=== PATIENT | male | born 1955 | race Caucasian/White ===

== ENCOUNTER → 2022-01-31 13:03 | Outpatient (BNVA) | payer MEDICARE, MEDICAID, SELFPAY | PROVIDERS: Visit Provider Nurse Practitioner Family | DX: J44.9 Chronic obstructive pulmonary disease, unspecified (principal); R00.2 Palpitations; I25.10 Atherosclerotic heart disease of native coronary artery without angina pectoris; F17.200 Nicotine dependence, unspecified, uncomplicated; Z12.5 Encounter for screening for malignant neoplasm of prostate; Z12.11 Encounter for screening for malignant neoplasm of colon; I25.2 Old myocardial infarction; R06.09 Other forms of dyspnea; Z76.89 Persons encountering health services in other specified circumstances; Z12.2 Encounter for screening for malignant neoplasm of respiratory organs | CPT/HCPCS: 80053; 80061; G0103 ==

== ENCOUNTER 2022-02-07 16:33 | Emergency (ER) | payer MEDICARE, MEDICAID, SELFPAY ==
[2022-02-07 16:45] VITALS: BP 146/90; PULSE 74; RESP 16; TEMP 36.7; O2SAT 96; BMI 17.4
--- NOTE | 2022-02-07 17:05 | XRR_ITS ---
PROCEDURE INFORMATION: Exam: XR Left Hand Exam date and time: 02/07/2022 6:04 PM Age: 66 years old Clinical indication: Pain; Hand; Left; Additional info: Left hand table saw injury TECHNIQUE: Imaging protocol: Radiologic exam of the Left hand. Views: 3 or more views. COMPARISON: No relevant prior studies available. FINDINGS: Bones/joints: Some irregularity/fragmentation of the distal most tuft of the 1st digit at the site of the wound. Otherwise, osseous structures are intact. Soft tissues: Normal. XR/XR hand LT min 3V* [id number] IMPRESSION: Some irregularity/fragmentation of the distal most tuft of the 1st digit at the site of the wound. Otherwise osseous structures are intact.
--- NOTE | 2022-02-07 17:15 | W.ED.EXTPRO ---
HPI - Extremity Problem General: Chief complaint: Extremity Injury, Upper Stated complaint: Left hand injury from table saw Time Seen by Provider: 02/07/22 17:05 History of Present Illness: Patient is a 66-year-old male comes to the ED with injury to left thumb. Injury occurred just prior to arrival. He was building a chicken coop and using his table saw. He accidentally cut the distal pad of his left thumb with a table saw. he also has laceration to distal pad of index finger as well. He currently has 9 out of 10 pain. Patient is not up-to-date on tetanus. Associated symptoms: Deny chest pain, fever(s) or rash Review of Systems Const: Denies: fever(s), chills or fatigue Eyes: Denies: change in vision or eye discomfort ENMT: Denies: throat pain, odynophagia, nasal discharge or nasal congestion Card: Denies: chest pain, palpitations, edema, swelling of feet/ankles, dyspnea on exertion or orthopnea Resp: Denies: dyspnea, productive cough or non-productive cough GI: Denies: abdominal pain, nausea, vomiting, diarrhea, constipation or hematochezia : Denies: flank pain, difficulty urinating, dysuria or hematuria Musc: Reports: extremity pain (Left thumb); Denies: neck pain, back pain or extremity swelling Skin/Breast: Reports: new lesions (left thumb skin avulsion, linear laceration on distal pad of index); Denies: rash Neuro: Denies: headache(s), numbness in extremities or weakness in extremities [facility] ED PFSH: Medical History CAD (coronary artery disease) COPD (chronic obstructive pulmonary disease) No pertinent family history Family History Other Aneurysm Cancer Stroke Social History Smoking and tobacco status: current every day smoker Physical Exam Const: COMMON NORMALS: patient oriented x3 and alert GENERAL APPEARANCE: cooperative HENMT: COMMON NORMALS: normocephalic HEAD & SCALP: normocephalic MOUTH: Normal oral and palatal mucosa present THROAT: posterior oropharynx normal and uvula midline Neck/C-Spine: COMMON NORMALS: supple GENERAL: Yes normal visual inspection Resp: COMMON NORMALS: normal respiratory effort, No retractions, No use of accessory muscles and clear to auscultation bilaterally AUSCULTATION: clear to auscultation bilaterally Cardio: COMMON NORMALS: regular rate, regular rhythm, S1 normal heart sound present, S2 normal heart sound present, No gallops present (Cardio), No clicks present (Cardio), No murmurs present (Cardio) and Peripheral pulses 2+ throughout RATE: regular rate RHYTHM: regular rhythm HEART SOUNDS: S1 normal heart sound present and S2 normal heart sound present PERIPHERAL PULSES: Peripheral pulses 2+ throughout GI: COMMON NORMALS: Normal to inspection, nondistended, normoactive bowel sounds present, Soft to palpation, non-tender and no masses PALPATION: Yes Soft to palpation : COMMON NORMALS: Yes no CVA tenderness BLADDER/KIDNEY EXAM: Yes no CVA tenderness Back/Pelvis: COMMON NORMALS: no CVA tenderness Extremity: NARRATIVE EXTREMITY EXAM: Left thumb?distal pad skin avulsion present. Saw also cut distal end of nail. Full range of motion. Left index finger?distal pad has a superficial 1.5 cm linear laceration. Neuro: COMMON NORMALS: patient oriented x3 SENSORIUM/ORIENTATION: Yes alert GAIT: Yes Normal gait present Skin: GENERAL SKIN EXAM: dry skin Procedures Laceration Laceration 1: Site: hand (index finger) Side (If applicable): left Size (cm): 1.5 Description: linear and clean Depth: simple, single layer Local Anesthetic: lidocaine 1% Amount of anesthesia used (mL): 5 Pre-repair: irrigated extensively (With normal saline and beta iodine, skin cleaned with CHG swab) Skin layer closed with: nylon Size (cm): 4-0 Number of sutures: 3 Technique: simple, interrupted Course Vital Signs: Vital signs: Vital Signs Temperature 98.0 F 02/07/22 16:45 Pulse Rate 74 02/07/22 16:45 Respiratory Rate 16 02/07/22 16:45 Blood Pressure 146/90 02/07/22 16:45 Pulse Oximetry 96 02/07/22 16:45 Oxygen Delivery Me thod 02/07/22 16:45 MDM - Extremity (Nontraumatic) Medical Decision Making Patient is a 66-year-old male comes to the ED with tablesaw injury to left thumb and index finger. Vitals are stable. Exam shows skin avulsion of distal pad of left thumb with distal and of nailbed and nail damage noted. He also has a superficial 1.5 cm linear laceration to distal pad of left index finger. He was given updated dose of tetanus here in the ED. X-ray of left hand showed possible fragmentation of the distal tuft of thumb. Patient's thumb and index finger laceration were irrigated extensively with normal saline and beta iodine wash. Lidocaine 1% with was used as local on the index finger and 3 sutures were placed to close up laceration on index finger. Patient's thumb was dressed with Vaseline gauze. He was given a dose of Rocephin here in the ED. Patient is stable for discharge home and diagnosed with avulsion of skin of finger, finger laceration and fracture of distal phalanx of left thumb. I placed an order with case management for patient be referred to Ortho for follow-up. Patient discharged home with a prescription for cephalexin and hydrocodone for pain. He was instructed on how to care for wounds at home. Return to ED precautions given. Patient understood and agreed with plan. Lab Data Radiology Impressions Hand X-Ray 02/07/22 17:05 IMPRESSION: Some irregularity/fragmentation of the distal most tuft of the 1st digit at the site of the wound. Otherwise osseous structures are intact. Discharge Plan Discharge Patient Disposition: Home Clinical Impression: Fracture of distal phalanx of left thumb Qualifiers: Encounter type: initial encounter Fracture type: open Fracture alignment: nondisplaced Qualified Code(s): S62.525B - Nondisplaced fracture of distal phalanx of left thumb, initial encounter for open fracture Avulsion of skin of finger Qualifiers: Encounter type: initial encounter Qualified Code(s): S61.209A - Unspecified open wound of unspecified finger without damage to nail, initial encounter Finger laceration Qualifiers: Encounter type: initial encounter Finger: index finger Damage to nail status: without damage Foreign body presence: without foreign body Laterality: left Qualified Code(s): S61.211A - Laceration without foreign body of left index finger without damage to nail, initial encounter Condition: Stable Prescriptions: New cephalexin 500 mg capsule 500 mg PO Q6H 7 Days Qty: 28 0RF No Action albuterol sulfate [Ventolin HFA] 90 mcg/actuation HFA aerosol inhaler 2 puff inhalation QID PRN (Reason: shortness of breath or wheezing) Qty: 8.5 6RF budesonide-formoterol [Symbicort] 160-4.5 mcg/actuation HFA aerosol inhaler 2 puff inhalation Q12H Qty: 10.2 6RF simvastatin 20 mg tablet 20 mg PO DAILY 90 Days Qty: 90 1RF Discharge Orders: Discharge ED (Routine); Ordered 02/07/22 Ordered By: Yordan Olivia Referrals: eRbecca Beavers NP [Primary Care Provider] - Discharge Diet: Regular Discharge Activity: Limit activity as instructed Patient Instructions: Finger Laceration (ED), Skin Avulsion (ED), Opioid Safety Activity Restrictions/Additional Instructions: Case management should be contacting you in the next several days set up an appointment with Ortho for follow-up on finger injury. Take full course of antibiotics as prescribed. Keep laceration site clean and dry. For your thumb clean skin daily with soap and water and rinse out then apply Vaseline or triple antibiotic ointment on wound and keep wrapped up and covered with bandage. Clean daily with soap and water and then apply thin layer of triple antibiotic ointment on it and cover with bandage. Watch for signs of infection such as redness, warmth, increased tenderness and puslike drainage. If you see the signs of infection return to the ED, urgent care or PCP for reevaluation. call your PCP to schedule a follow-up appointment for reevaluation and suture removal in about 7- 10 days. Continue taking all home meds. Follow discharge plans as discussed. You can return to the ED if symptoms worsen. Coding Level of Care Code ED Dynamometer Tester for Gifty Fwbrendon Exam Comprehensive
[2022-02-07] MEDS: tetanus-dipt-pertussis 0.5 mL SDV IM (17:29)
[2022-02-07] MEDS: HYDROcodone-acetaminophen 7.5-325 mg Tablet 1 TAB PO (17:29)
[2022-02-07] MEDS: lidocaine 1% INJ 20 mL MDV (mL) 2.1 ML XX (18:57)
[2022-02-07] MEDS: cefTRIAXone 1,000 mg SDV 1000 MG IM (18:57)
--- NOTE | 2022-02-10 10:43 | DCPLANNER ---
Addendum entered by Marilu Gallegos 03/13/22 08:32: Patient had a follow up appointment scheduled with ortho - patient did attend appointment. Original Note: web production manager had message to schedule a follow up appointment for patient with ortho. web production manager sent patients information to the front office staff at ortho. Patients information will be printed and reviewed. Clinic will call patient with appointment information.
== END 2022-02-07 19:02 | disposition home or self-care (01) ==
PROVIDERS: Emergency Provider Physician Assistant; PCP Nurse Practitioner Family
DX: S61.211A Laceration without foreign body of left index finger without damage to nail, initial encounter (principal); S62.525B Nondisplaced fracture of distal phalanx of left thumb, initial encounter for open fracture; W27.0XXA Contact with workbench tool, initial encounter; Y93.H3 Activity, building and construction
CPT/HCPCS: 12001; 73130; 90471; 90715; 96372; 99284; J0696

== ENCOUNTER → 2022-02-14 09:33 | Outpatient (BNVA) | payer MEDICARE, SELFPAY | PROVIDERS: PCP Nurse Practitioner Family; Visit Provider Nurse Practitioner Family | DX: S61.012A Laceration without foreign body of left thumb without damage to nail, initial encounter (principal); W31.2XXA Contact with powered woodworking and forming machines, initial encounter; Y93.H3 Activity, building and construction; S62.522A Displaced fracture of distal phalanx of left thumb, initial encounter for closed fracture | CPT/HCPCS: 99213 ==

== ENCOUNTER → 2022-02-20 08:39 | Outpatient (BNVA) | payer MEDICARE, SELFPAY | PROVIDERS: PCP Nurse Practitioner Family; Visit Provider Nurse Practitioner Family | DX: S62.522A Displaced fracture of distal phalanx of left thumb, initial encounter for closed fracture (principal); S61.209A Unspecified open wound of unspecified finger without damage to nail, initial encounter; W31.2XXA Contact with powered woodworking and forming machines, initial encounter | CPT/HCPCS: 99213 ==

== ENCOUNTER → 2022-02-27 08:37 | Outpatient (BNVA) | payer MEDICARE, SELFPAY | PROVIDERS: PCP Nurse Practitioner Family; Visit Provider Nurse Practitioner Family | DX: S62.522A Displaced fracture of distal phalanx of left thumb, initial encounter for closed fracture (principal); S61.002A Unspecified open wound of left thumb without damage to nail, initial encounter; W31.2XXA Contact with powered woodworking and forming machines, initial encounter | CPT/HCPCS: 99213 ==

== ENCOUNTER 2022-03-05 06:07 | Outpatient (CLI) | payer MEDICARE, SELFPAY ==
--- NOTE | 2022-03-05 06:30 | CT_ITS ---
WS: [id number] LDCT LUNG CANCER SCREENING TECHNIQUE: Noncontrast CT of the chest with coronal and sagittal reformatted images. CLINICAL INFORMATION: screeni COMPARISON: None. DLP: 80.11 mGy.cm DIvol: Mean CTDIvol: 1.60 (mGy) All CT scans at [facility] use at least one of these dose optimization techniques: automat ed exposure control; mA and/or kV adjustment per patient size (includes targeted exams where dose is matched to clinical indication); or iterative reconstruction. FINDINGS: Clustered subpleural nodularity with fibrosis RIGHT upper lobe measuring 2-3 mm. Partially calcified nodule LEFT upper lobe measuring 4 mm. A few tiny calcified granulomas. No acute pulmonary infiltrates. Normal caliber thoracic aorta. Aorti c calcification. No mediastinal or hilar lymphadenopathy. No axillary lymphadenopathy. Normal GE junction. CT/CT lung screening [id number] IMPRESSION: LUNG-RADS: 2-Benign Appearance or Behavior FOLLOW UP: 12 Month: Continue annual screening with LDCT
== END 2022-03-05 06:08 | disposition home or self-care (01) ==
LOC: RAD 06:09
PROVIDERS: PCP Nurse Practitioner Family; Visit Provider Nurse Practitioner Family
DX: Z12.2 Encounter for screening for malignant neoplasm of respiratory organs (principal); J44.9 Chronic obstructive pulmonary disease, unspecified; F17.200 Nicotine dependence, unspecified, uncomplicated; J84.10 Pulmonary fibrosis, unspecified
CPT/HCPCS: 71271; 94060; 94726; 94729

== ENCOUNTER → 2022-03-19 08:29 | Outpatient (BNVA) | payer MEDICARE, SELFPAY | PROVIDERS: PCP Nurse Practitioner Family; Visit Provider Nurse Practitioner Family | DX: S61.209A Unspecified open wound of unspecified finger without damage to nail, initial encounter (principal) | CPT/HCPCS: 99213 ==

== ENCOUNTER 2022-03-21 14:28 | Outpatient (CLI) | payer MEDICARE, MEDICAID, SELFPAY ==
--- NOTE | 2022-03-21 15:15 | USCV_ITS ---
Garth Robert (J Carlos) Age: 66 Gender: M : 1955 Exam Date: 03/21/2022 14:51 Ordering Phys: Rebecca Beavers NP Technologist: Exam Location: [facility] [place] Indication: hx of mi BP: 120 / 70 HR: 68 Rhythm: Sinus Technical Quality: Adequate MEASUREMENTS (Male / Female) Normal Values 2D ECHO LV Diastolic Diameter PLAX 4.2 cm 4.2 - 5.9 / 3.9 - 5.3 cm LV Systolic Diameter PLAX 2.5 cm IVS Diastolic Thickness 1.0 cm 0.6 - 1.0 / 0.6 - 0.9 cm IVS Systolic Thickness 1.5 cm LVPW Diastolic Thickness 0.9 cm 0.6 - 1.0 / 0.6 - 0.9 cm LVPW Systolic Thickness 1.5 cm LVOT Diameter 2.2 cm LV Ejection Fraction 2D Teich 72.5 % LV Ejection Fraction MOD 2C 55.8 % LV Ejection Fraction 2C AL 56.1 % LA Diameter 3.2 cm Aorta at Sinotubular Diameter 3.4 cm IVC Diameter 1.4 cm M-MODE Aortic Annulus Diameter 3.9 cm LA Ao Ratio MM 0.8 MV E Point Septal Separation 0.8 cm DOPPLER AV Peak Velocity 108.0 cm/s LVOT Peak Velocity 97.0 cm/s AV Area Cont Eq vti 3.8 cm squared AV Area Cont Eq pk 3.4 cm squared MV Area PHT 2.2 cm squared Mitral E to A Ratio 0.8 MV E' Velocity 34.0 cm/s Mitral E to MV E' Ratio 5.0 Mitral E to LV E' Lateral Ratio 4.8 Mitral E to LV E' Septal Ratio 5.1 TR Peak Velocity 102.0 cm/s TR Peak Gradient 4.2 mmHg TR Mean Velocity 0.0 cm/s TR Mean Gradient 0.0 mmHg TR Velocity Time Integral 0.0 cm TV Peak E Velocity 59.0 cm/s Right Atrial Pressure 3.0 mmHg Pulmonary Artery Systolic Pressu 7.2 mmHg RV Acceleration Time 0.1 s FINDINGS Left Ventricle Left ventricle is normal in size. LV systolic function is normal with EF of 55 to 60%. No regional wall motion abnormalities are seen. Grade 1 diastolic dysfunction Right Ventricle Normal in size and function Right Atrium Normal in size Left Atrium Normal in size Mitral Valve Structurally normal mitral valve. Trace mitral regurgitation Aortic Valve Structurally normal aortic valve. No significant stenosis or regurgitation Tricuspid Valve Mild tricuspid regurgitation. Pulmonary artery systolic pressure is normal Pulmonic Valve Not well visaulized Pericardium Normal Aorta Normal in size IVC Appears to be normal CONCLUSIONS LV systolic function is normal with EF 55 to 60%. Grade 1 diastolic dysfunction. Mild tricuspid regurgitation. Trace mitral regurgitation No comparison studies are available Favian Singleton MD (Electronically Signed) Final Date: 07 April 2022 08:47 S
== END 2022-03-21 14:29 | disposition home or self-care (01) ==
PROVIDERS: PCP Nurse Practitioner Family; Visit Provider Nurse Practitioner Family
DX: F17.200 Nicotine dependence, unspecified, uncomplicated (principal); I25.2 Old myocardial infarction; R00.2 Palpitations; I08.1 Rheumatic disorders of both mitral and tricuspid valves
CPT/HCPCS: 93306

== ENCOUNTER → 2022-04-01 12:28 | Outpatient (BNVA) | payer MEDICARE, SELFPAY | PROVIDERS: PCP Nurse Practitioner Family; Visit Provider Internal Medicine | DX: I25.10 Atherosclerotic heart disease of native coronary artery without angina pectoris (principal); J44.9 Chronic obstructive pulmonary disease, unspecified; E78.2 Mixed hyperlipidemia; F17.200 Nicotine dependence, unspecified, uncomplicated; R07.9 Chest pain, unspecified; R06.09 Other forms of dyspnea | CPT/HCPCS: 93005; 99204 ==

== ENCOUNTER → 2022-04-30 13:17 | Outpatient (BNVA) | payer MEDICARE, SELFPAY | PROVIDERS: PCP Nurse Practitioner Family; Visit Provider Internal Medicine Pulmonary Disease | DX: J44.9 Chronic obstructive pulmonary disease, unspecified (principal); T78.40XA Allergy, unspecified, initial encounter; R06.09 Other forms of dyspnea; F17.210 Nicotine dependence, cigarettes, uncomplicated | CPT/HCPCS: 36415; 82785; 86003; 99204 ==

== ENCOUNTER 2022-05-15 09:29 | Outpatient (CLI) | payer MEDICARE, MEDICAID, SELFPAY ==
--- NOTE | 2022-05-15 | ECG_ITS ---
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 Interpretive Statements NAME OF STUDY: LEXISCAN SESTAMIBI STRESS TEST INDICATION: [Chest Pain, ] Procedure: At the baseline, the blood pressure was 128/75 mmHg with a heart rate of 57 bpm. The electrocardiogram showed normal sinus rhythm, normal axis with normal ST and T's. The Lexiscan was infused over a period of 20 seconds. A total of 0.4 mg of Lexiscan was infused. The stress phase was continued for a total of 5 minutes. Heart rate was at the end of stress phase was 85 bpm and a blood pressure of 100/65 mmHg. The EKG at the peak infusion revealed normal sinus rhythm with no significant ST-T wave changes. Sestamibi was injected 20 seconds after the Lexiscan infusion. Blood pressure at the end of recovery phase was 107/69 mmHg with a heart rate of 86 bpm. Conclusion: 1. Normal EKG response to Lexiscan infusion 2. No Lexiscan induced chest pain or cardiac arrhythmia. 3. Normal blood pressure and heart rate response. 4. Sestamibi/sestamibi perfusion scan pending; see separate report. Electronically Signed On 05-18-2022 20:03:07 FURNITURE DUSTER by Favian Singleton M.D. [email or web address]
[2022-05-15 10:47] VITALS: BMI 17.2
--- NOTE | 2022-05-15 10:49 | NMCV_ITS ---
NM anuradha perf SPECT r/s* [id number] Robert Liang (J Carlos) Age: 66 Gender: M : 1955 Exam Date: 05/15/2022 11:37 Ordering Phys: Favian Singleton M.D ([email or web address]) Technologist: ELISSA Mcguire Exam Location: [facility] Indications: CHEST PAIN STRESS TEST Please see separate stress test report in [facility] for full findings IMAGE PROTOCOL Rest/Stress 1 Lexiscan Day Radiopharmaceutical Dose (mCi) Administration Site Administered by Rest: Tc-99m 11.0 IV ELISSA Strauss Sestamibi Stress:Tc-99m 32.4 IV ELISSA Mcguire Sestamiluz Rest: 15-May-2022 60 Discovery 630 Stress: 15-May-2022 30 Discovery 630 0.4mg Lexiscan. Images obtained in supine and prone position. SPECT RESULTS Technical Quality: Excellent Raw Data Analysis: Normal Image Corrections: No attenuation or motion correction applied Summed Stress Score: 0 Summed Rest Score: 4 Summed Difference Score: 0 PERFUSION FINDINGS SPECT images demonstrate homogeneous tracer distribution throughout the myocardium. FUNCTIONAL RESULTS (calculated via Gated SPECT) Stress Image LV EF (%): 66 Stress EDV (mL):97 TID: 1 Stress ESV (mL):33 FUNCTIONAL FINDINGS: There is normal left ventricular systolic function. IMPRESSIONS 1. Normal myocardial perfusion imaging with no evidence of ischemia 2. LV systolic function is normal Favian Singleton MD (Electronically Signed) Final Date: 16 May 2022 13:30 S
[2022-05-15] MEDS: regadenoson 0.4 Mg/5 ml Syringe IVP (12:29)
[2022-05-15 12:30] VITALS: BP 107/69; PULSE 86
== END 2022-05-15 09:30 | disposition home or self-care (01) ==
PROVIDERS: PCP Nurse Practitioner Family; Visit Provider Internal Medicine
DX: R07.9 Chest pain, unspecified (principal)
CPT/HCPCS: 36415; 78452; 93017; 96374; A9500; J2785

== ENCOUNTER → 2022-07-01 12:34 | Outpatient (BNVA) | payer MEDICARE, MEDICAID, SELFPAY | PROVIDERS: PCP Nurse Practitioner Family; Visit Provider Nurse Practitioner Family | DX: I25.10 Atherosclerotic heart disease of native coronary artery without angina pectoris (principal); F17.210 Nicotine dependence, cigarettes, uncomplicated | CPT/HCPCS: 99213 ==

== ENCOUNTER → 2022-09-02 08:55 | Outpatient (BNVA) | payer MEDICARE, MEDICAID, SELFPAY | PROVIDERS: PCP Nurse Practitioner Family; Visit Provider Nurse Practitioner Family | DX: E78.2 Mixed hyperlipidemia (principal); Z00.00 Encounter for general adult medical examination without abnormal findings; J44.9 Chronic obstructive pulmonary disease, unspecified; I25.10 Atherosclerotic heart disease of native coronary artery without angina pectoris; R00.2 Palpitations | CPT/HCPCS: 80053; 80061 ==

== ENCOUNTER 2022-09-03 06:08 | Day surgery (SDC) | payer MEDICARE, MEDICAID, SELFPAY ==
[2022-09-01 09:21] VITALS: BMI 17.4
[2022-09-03 06:24] VITALS: BP 145/78; PULSE 54; RESP 17; TEMP 36.4; O2SAT 96
[2022-09-03] MEDS: sodium chloride 0.9% 1,000 ML 30 ML IV ×2 (06:28→09:01)
--- NOTE | 2022-09-03 07:41 | ANES.PREANE2 ---
Pre-Anesthetic Assessment Height/Weight: Height 1.78 m Weight 55.338 kg Temp Pulse Resp BP Pulse Ox O2 Del Method 97.5 F L 54 L 17 145/78 96 Room Air 09/03/22 06:24 09/03/22 06:24 09/03/22 06:24 09/03/22 06:24 09/03/22 06:24 09/03/22 06:24 Preop Diagnosis: screening Operation Date: 09/03/22 08:00 Proposed Procedures p [id number] Colon Z12.11(Not Applicable) - Dirk Walden DO Familial anesthetic complications: none Was Beta Danielle taken within 24 hours: N/A Was Clonidine taken within 24 hours: N/A Last intake: Intake Last Liquid Date 09/02/22 Last Liquid Time 22:00 Last Solid Date 09/01/22 Last Solid Time 19:00 Social Tobacco and No alcohol 1 pack(s) per day 50 pack years Exam alert, oriented x 3, clear to auscultation bilaterally and regular rate & rhythm Airway Submandibular: within normal limits Cervical ROM: within normal limits Mallampati: Class I Dentition: chipped Comments: Comments: most teeth gone Pulmonary Asthma, Chronic Obstructive Pulmonary Disease and Exertional Dyspnea CV/HEM Myocardial Infarction (2017 follow up has all been good) None reported Hepatic None reported GI None reported Metabolic Hyperlipidemia Musc/skel Lower Back Pain multiple back surgeries Neuropsych None reported Anesthetic Plan ASA status: 2 Anesthesia: MAC Risk of > 500 ml blood loss (7ml/kg in children): No Medications/Allergies Home Medications Medication Instructions Recorded Confirmed Last Taken Type albuterol sulfate 90 mcg/actuation 2 puff inhalation QID PRN 09/02/22 09/03/22 09/02/22 Rx aerosol inhaler (Ventolin HFA) shortness of breath or wheezing #8.5 grams budesonide 160 mcg-glycopyr 9 2 inh inhalation BID 30 days #10.7 09/02/22 09/03/22 09/02/22 Rx mcg-formot 4.8 mcg/actuation HFA grams inhaler (Breztri Aerosphere) simvastatin 20 mg tablet 20 mg PO DAILY 90 days #90 tabs 09/02/22 09/03/22 09/02/22 Rx Allergies Allergy/AdvReac Type Severity Reaction Status Date / Time iodine Allergy Unknown Verified 09/03/22 06:18 Current Medications Generic Name Dose Route Start Last Admin Trade Name Freq PRN Reason Stop Dose Admin Sodium Chloride 1,000 mls @ 30 mls/hr 09/03/22 06:15 09/03/22 06:28 Sodium Chloride 0.9% IV 09/04/22 06:14 30 mls/hr .Q24H JOCELYNN Administration PFSH Anesthesia Medical History CAD (coronary artery disease) COPD (chronic obstructive pulmonary disease) No pertinent family history Family History Other Aneurysm Cancer Stroke Social History Smoking and tobacco status: current every day smoker cigarettes Packs smoked per day: 1 Years cigarettes smoked: 50 [ Other cigarette details: started age 11 ; less than 1ppd currently ] Data Anesthesia Cardiac Studies: Echocardiogram 03/21/22 Sestamibi Stress Test (Cardiology) 05/15/22
--- NOTE | 2022-09-03 08:26 | PM.HP ---
Providers/Chief Complaint Primary Care Provider: Rebecca Beavers NP Chief Complaint: Z12.11 History of Present Illness Robert Liang is a 66 year old male here for his first screening colonoscopy. He does have a history of polyps. Pathology cholecystectomy, constipation, Medications/Allergies Home Medications Medication Instructions Recorded Confirmed Last Taken Type albuterol sulfate 90 mcg/actuation 2 puff inhalation QID PRN 09/02/22 09/03/22 09/02/22 Rx aerosol inhaler (Ventolin HFA) shortness of breath or wheezing #8.5 grams budesonide 160 mcg-glycopyr 9 2 inh inhalation BID 30 days #10.7 09/02/22 09/03/22 09/02/22 Rx mcg-formot 4.8 mcg/actuation HFA grams inhaler (Breztri Aerosphere) simvastatin 20 mg tablet 20 mg PO DAILY 90 days #90 tabs 09/02/22 09/03/22 09/02/22 Rx Allergies Allergy/AdvReac Type Severity Reaction Status Date / Time iodine Allergy Unknown Verified 09/03/22 06:18 PFSH Acute PFSH: Medical History CAD (coronary artery disease) COPD (chronic obstructive pulmonary disease) No pertinent family history Family History Other Aneurysm Cancer Stroke Social History Smoking and tobacco status: current every day smoker cigarettes Packs smoked per day: 1 Years cigarettes smoked: 50 [ Other cigarette details: started age 11 ; less than 1ppd currently ] Vitals/I&O/Wt Last Vital Signs Temp 97.5 F L 09/03/22 06:24 Pulse 54 L 09/03/22 06:24 Resp 17 09/03/22 06:24 BP 145/78 09/03/22 06:24 Pulse Ox 96 09/03/22 06:24 O2 Del Method Room Air 09/03/22 06:24 Weight last 48 hrs Weight 122 lb A&P Assessment and plan (1) Colon cancer screening: Plan Colonoscopy The risks and benefits of the procedure, including bleeding, infection, intestinal perforation requiring surgery, missed lesion were explained to the patient. The patient is understanding of the risks and wishes to proceed. Attestations Medical Necessity Statement*: Home Coding Level of Care Code Acute Code for Chg Fwd Diagnoses Colon cancer screening Z12.11
[2022-09-03 09:14] VITALS: BP 111/65; PULSE 61; RESP 16; TEMP 36.1; O2SAT 96
[2022-09-03 09:29] VITALS: BP 109/70; PULSE 60; RESP 18; O2SAT 99
--- NOTE | 2022-09-03 14:23 | ANE.PACU2 ---
Inpatient post-anesthesia follow up: Airway intact: Yes Vital signs: Temperature 97 F Pulse Rate 60 Respiratory Rate 18 Blood Pressure 109/70 Pulse Oximetry 99 Oxygen Delivery Me thod Room Air Oxygen Flow Rate Fraction of Inspir ed Oxygen Hydration adequate: Yes Nausea and vomiting: No Pain level: 1 Mental status: Baseline
== END 2022-09-03 10:01 | disposition home or self-care (01) ==
PROVIDERS: PCP Nurse Practitioner Family; Visit Provider Surgery
PROC: 0DJD8ZZ Inspection of Lower Intestinal Tract, Via Natural or Artificial Opening Endoscopic (ICD-10-PCS; CPT 45378; principal; 2022-09-03 08:00)
DX: Z12.11 Encounter for screening for malignant neoplasm of colon (principal); I25.10 Atherosclerotic heart disease of native coronary artery without angina pectoris; J44.9 Chronic obstructive pulmonary disease, unspecified; F17.210 Nicotine dependence, cigarettes, uncomplicated; I25.2 Old myocardial infarction; K57.30 Diverticulosis of large intestine without perforation or abscess without bleeding; D12.2 Benign neoplasm of ascending colon; I10 Essential (primary) hypertension
CPT/HCPCS: 45381; 45385; 45388; 74176; 80053; 83605; 83690; 85025; 85610; 88305; 96374; 96375; 99284; J2405; J2704; J3010; J7030

== ENCOUNTER 2022-09-03 20:09 | Emergency (ER) | payer MEDICARE, MEDICAID, SELFPAY ==
[2022-09-03 20:10] VITALS: BMI 24.3
[2022-09-03 20:17] VITALS: BP 121/72; PULSE 73; RESP 17; TEMP 36.9; O2SAT 94
--- NOTE | 2022-09-03 20:26 | CTR_ITS ---
PROCEDURE INFORMATION: Exam: CT Abdomen And Pelvis Without Contrast Exam date and time: 09/03/2022 8:43 PM Age: 66 years old Clinical indication: Abdominal pain; Generalized; Prior surgery; Surgery date: 6+ months; Surgery type: Lumbar fusion; Additional info: Severe abd pain, S/P colonoscopy today, perforation? TECHNIQUE: Imaging protocol: Computed tomography of the abdomen and pelvis without contrast. Radiation optimization: All CT scans at this facility use at least one of these dose optimization techniques: automated exposure control; mA and/or kV adjustment per patient size (includes targeted exams where dose is matched to clinical indication); or iterative reconstruction. REPORTING DATA: Count of CT and Cardiac NM exams in prior 12 months: This patient has received 2 known CTs and 0 known cardiac nuclear medicine studies in the 12 months prior to the current study. COMPARISON: CT lung screening [id number] 03/05/2022 6:22 AM RADIATION DOSE METRICS: Total DLP (mGy-cm): 304.36 FINDINGS: Lungs: Emphysematous changes. Bibasilar atelectasis. Liver: Normal. No mass. Gallbladder and bile ducts: Normal. No calcified stones. No ductal dilation. Pancreas: Normal. No ductal dilation. Spleen: Normal. No splenomegaly. Adrenal glands: Normal. No mass. Kidneys and ureters: Right kidney punctate nonobstructing calyceal stone. Stomach and bowel: Prominent fluid in the small bowel without dilation may reflect an enteritis. Mild sigmoid colon wall thickening in the area of multiple diverticula likely due to nondistention, please correlate for colitis. Appendix: No evidence of appendicitis. Intraperitoneal space: Unremarkable. No free air. No significant fluid collection. Vasculature: Unremarkable. No abdominal aortic aneurysm. Lymph nodes: Unremarkable. No enlarged lymph nodes. Urinary bladder: Unremarkable as visualized. Reproductive: Unremarkable as visualized. Bones/joints: Lumbar spine surgical hardware. Soft tissues: Unremarkable. CT/CT abdomen pelvis wo con [id number] IMPRESSION: 1. Negative for free intra-abdominal air to indicate a bowel perforation as in provided clinical indication. 2. Emphysematous changes. 3. Bibasilar atelectasis. 4. Right kidney punctate nonobstructing calyceal stone. 5. Prominent fluid in the small bowel without dilation may reflect an enteritis. 6. Mild sigmoid colon wall thickening in the area of multiple diverticula likely due to nondistention, please correlate for colitis.
[2022-09-03 20:34] VITALS: RESP 14; O2SAT 93
[2022-09-03] MEDS: ondansetron 2 mg/ML SDV 2 mL 4 MG IVP (20:34)
[2022-09-03] MEDS: fentaNYL 50 mcg/mL INJ 2mL IVP (20:34)
--- NOTE | 2022-09-03 20:35 | W.ED.ABDPA2 ---
HPI - Abdominal Pain General: Chief Complaint: Abdominal Pain Stated Complaint: abdomen pain Time Seen by Provider: 09/03/22 20:22 History of Present Illness: Patient presents to the ER with complaints of worsening abdominal pain today. Today patient had a colonoscopy by Dr. Walden and he removed several large polyps. Patient's been having worsening abdominal pain ever since. Patient called Dr. Walden he told to come here to be checked out for potential perforation. MD elicited complaint: abdominal pain Pertinent past history: other (Colonoscopy with polypectomy this morning) Onset (ago): day(s) (Since colonoscopy this morning) Pain Consistency: constant Location: Diffuse Severity: moderate Quality: aching Radiation: none Migration to: no migration Exacerbating factors: movement Relieving factors: nothing Context: recent surgery/procedure Associated Symptoms: Reports no associated symptoms; Denies chills, diarrhea, dysuria, fever(s), nausea and vomiting Review of Systems General: Reports: 10 or more systems reviewed and unremarkable except in HPI and below Const: Denies: fever(s) or chills Eyes: Denies: change in vision or photophobia ENMT: Denies: throat pain or odynophagia Card: Denies: chest pain, palpitations or irregular heart rhythm Resp: Denies: dyspnea, productive cough or non-productive cough GI: Reports: abdominal pain; Denies: nausea, vomiting or diarrhea : Denies: flank pain, difficulty urinating or dysuria Musc: Denies: neck pain, back pain or extremity pain [facility] PFSH: Medical History CAD (coronary artery disease) COPD (chronic obstructive pulmonary disease) No pertinent family history Family History Other Aneurysm Cancer Stroke Social History Smoking and tobacco status: current every day smoker cigarettes Packs smoked per day: 1 Years cigarettes smoked: 50 [ Other cigarette details: started age 11 ; less than 1ppd currently ] Physical Exam Const: COMMON NORMALS: average body habitus, patient oriented x3, no limitations, healthy appearing, alert and well nourished HENMT: COMMON NORMALS: normocephalic, atraumatic, hearing grossly normal bilaterally, external ears normal, Normal external nose present and moist oral mucous membranes HEAD & SCALP: normocephalic and atraumatic NOSE: Normal external nose present EXTERNAL EAR: Yes external ears normal Eye: COMMON NORMALS: Equal, round and reactive pupils present, EOMs intact bilaterally, conjunctivae normal and no scleral icterus CONJUNCTIVA: Yes conjunctivae normal PUPIL: Yes Equal, round and reactive pupils present Neck/C-Spine: COMMON NORMALS: full ROM, no lymphadenopathy, supple, no meningeal signs, no JVD and Thyroid normal THYROID: Thyroid normal Lymph: LYMPHATIC: no lymphadenopathy noted Chest: COMMONS NORMALS: normal inspection of the chest and normal palpation of entire chest wall Resp: COMMON NORMALS: normal respiratory effort, No retractions, No use of accessory muscles and clear to auscultation bilaterally AUSCULTATION: clear to auscultation bilaterally Cardio: COMMON NORMALS: no JVD, regular rate, regular rhythm, S1 normal heart sound present and S2 normal heart sound present RATE: regular rate RHYTHM: regular rhythm HEART SOUNDS: S1 normal heart sound present and S2 normal heart sound present GI: COMMON NORMALS: Soft to palpation INSPECTION: Yes normal to inspection AUSCULTATION: Yes normoactive bowel sounds PALPATION: Yes Soft to palpation and Yes Tenderness to palpation present (GI) Details: LLQ, RLQ, LUQ and RUQ : COMMON NORMALS: Yes no CVA tenderness BLADDER/KIDNEY EXAM: Yes no CVA tenderness Back/Pelvis: COMMON NORMALS: no CVA tenderness Neuro: COMMON NORMALS: patient oriented x3 SENSORIUM/ORIENTATION: Yes alert MENINGEAL SIGNS: Yes no meningeal signs Course Vital Signs: Vital signs: Vital Signs Temperature 98.5 F 09/03/22 20:17 Pulse Rate 65 09/03/22 21:46 Respiratory Rate 17 09/03/22 21:46 Blood Pressure 91/60 09/03/22 21:46 Pulse Oximetry 90 09/03/22 21:46 Oxygen Delivery Me thod Room Air 09/03/22 20:17 MDM - Abdominal Pain Medical Decision Making Patient presents to the ER with complaints of worsening abdominal pain post colonoscopy and was worried about a perforation secondary to polypectomy. Physical exam was performed on patient did reveal patient in moderate amount of pain with abdominal palpation. Lab work was obtained which showed a white count of 17 and a total bilirubin of 2.7 with normal liver enzymes. CT scan was obtained which was negative for free air but did show prominent fluid in the small bowel and mild sigmoid colon wall thickening which is thought to to be due to the colonoscopy and/or colonoscopy prep. These findings were discussed with the patient and patient has elected to go home for symptomatic care. Patient will be discharged home with 2 [place] to take home to take as needed for pain. Patient was instructed if pain comes back or worsens he should come back for further evaluation. Differential Diagnosis Likely abdominal pain; Unlikely acute appendicitis, calculus of kidney, constipation, diverticulitis, endometriosis, gastroenteritis, pancreatitis or small bowel obstruction Medical Records I reviewed the patient's medical records. Lab Data I reviewed the patient's lab results. 09/03/22 20:09/03/22 20: Labs/Radiology: Radiology Impressions Abdomen/Pelvis CT 09/03/22 20: IMPRESSION: 1. Negative for free intra-abdominal air to indicate a bowel perforation as in provided clinical indication. 2. Emphysematous changes. 3. Bibasilar atelectasis. 4. Right kidney punctate nonobstructing calyceal stone. 5. Prominent fluid in the small bowel without dilation may reflect an enteritis. 6. Mild sigmoid colon wall thickening in the area of multiple diverticula likely due to nondistention, please correlate for colitis. Laboratory Results WBC 17.8 10^3/uL (4.0-10.0) H 09/03/22: RBC 4.74 10^6/uL (4.1-5.3) 09/03/22 20: Hgb 14.6 g/dL (11.7-16.6) 09/03/22: Hct 44.1 % (42.0-52.0) 09/03/22 20: MCV 93.0 fl (80-94) 09/03/22 20: MCH 30.8 pg (28.0-34.0) 09/03/22: MCHC 33.1 g/dL (30.0-36.0) 09/03/22: RDW 12.9 % (12.1-15.1) 09/03/22 20: Plt Count 251 10^3/cmm (130-400) 09/03/22 20: MPV 9.5 fL (7.4-10.4) 09/03/22 20: Neut % (Auto) 87.6 % 09/03/22 20: Lymph % (Auto) 8.0 % 09/03/22 20: [place] % (Auto) 3.7 % 09/03/22 20: Eos % (Auto) 0.1 % 09/03/22 20: Baso % (Auto) 0.1 % 09/03/22 20: Neut # (Auto) 15.61 10^3/uL (1.8-7.7) H 09/03/22 20: Lymph # (Auto) 1.4 10^3/uL (0.8-4.8) 09/03/22: [place] # (Auto) 0.7 10^3/uL (0.2-0.9) 09/03/22 20: Eos # (Auto) 0.0 10^3/uL (0.0-0.8) 09/03/22: Baso # (Auto) 0.0 10^3/uL (0.0-0.1) 09/03/22 20: Nucleated RBC % (auto) 0 % 09/03/22: Nucleated RBCs # 0.0 /100WBC 09/03/22 20: PT 13.40 SECONDS (12.1-14.9) 09/03/22 20: INR 0.99 (0.8-1.2) 09/03/22 20: Sodium 138 mmol/L (136-145) 09/03/22: Potassium 3.7 mmol/L (3.5-5.1) 09/03/22: Chloride 104 mmol/L (98-107) 09/03/22: Carbon Dioxide 23 mmol/L (22-29) 09/03/22 20: Anion Gap 14.7 (5-19) 09/03/22 20: BUN 12 mg/dL (8-23) 09/03/22 20: Creatinine 0.5 mg/dL (0.7-1.2) L 09/03/22 20: GFR Calculation 165.9 mL/min (90-130) H 09/03/22 20: Glucose 103 mg/dL (65-115) 09/03/22 20:27 Calculated Osmolality 286 mOsm/kg (285-295) 09/03/22 20: Lactic Acid 1.1 mmol/L (0.5-2.2) 09/03/22 20: Calcium 8.4 mg/dL (8.5-10.5) L 09/03/22 20: Total Bilirubin 2.7 mg/dL (0.15-1.2) H 09/03/22 20: AST 17 U/L (0-40) 09/03/22 20: ALT 7 U/L (0-41) 09/03/22 20: Alkaline Phosphatase 62 U/L (40-130) 09/03/22 20: Total Protein 6.6 g/dL (6.6-8.7) 09/03/22 20: Albumin 4.1 g/dL (3.5-5.2) 09/03/22 20: Globulin 2.5 g/dL (1.3-4.6) 09/03/22 20: Lipase 15 U/L (13-60) 09/03/22 20:27 Discharge Plan Discharge Patient Disposition: Home Clinical Impression: Abdominal pain Qualifiers: Abdominal location: generalized Qualified Code(s): R10.84 - Generalized abdominal pain Condition: Stable Prescriptions: No Action albuterol sulfate [Ventolin HFA] 90 mcg/actuation HFA aerosol inhaler 2 puff inhalation QID PRN (Reason: shortness of breath or wheezing) Qty: 8.5 6RF Breztri Aerosphere 160-9-4.8 mcg/actuation HFA aerosol inhaler 2 inh inhalation BID 30 Days Qty: 10.7 11RF simvastatin 20 mg tablet 20 mg PO DAILY 90 Days Qty: 90 1RF Discharge Orders: Discharge ED (Routine); Ordered 09/03/22 Ordered By: Tl Hazel Referrals: Rebecca Beavers NP [Primary Care Provider] - 1 week Patient Instructions: Abdominal Pain (ED) Activity Restrictions/Additional Instructions: You were given 2 [place] tablets to go home with to take as needed for pain medicine. If you decide to take these please take 1 pill every 6 hours as needed for pain. The more you get up and move around this should help the air move out of your colon and help with your pain. Please follow-up with your surgeon and/or family practice doctor in the next week to have your labs redrawn to check your white count and your total bilirubin. If your pain comes back and/or worsens please follow-up with the emergency room for reevaluation. Coding Level of Care Code ED Assistant [employer] for [employer]
[2022-09-03 20:43] LABS: Basophils % 0.1 %; Eosinophils % 0.1 %; Hematocrit 44.1 % (42.0-52.0); Hemoglobin 14.6 g/dL (11.7-16.6); Lymphocytes # 1.4 10^3/uL (0.8-4.8); Mean Corpuscular HGB Conc 33.1 g/dL (30.0-36.0); Mean Corpuscular Hemoglobin 30.8 pg (28.0-34.0); Mean Platelet Volume 9.5 fL (7.4-10.4); Monocytes # 0.7 10^3/uL (0.2-0.9); Monocytes % 3.7 %; Neutrophils # 15.61 10^3/uL (1.8-7.7); Neutrophils % 87.6 %; Nucleated Red Blood Cells % 0 %; Platelet Count 251 10^3/cmm (130-400); Red Blood Count 4.74 10^6/uL (4.1-5.3); Red Cell Distribution Width 12.9 % (12.1-15.1); White Blood Count 17.8 10^3/uL (4.0-10.0)
[2022-09-03 21:11] LABS: INR 0.99 (0.8-1.2)
[2022-09-03 21:24] LABS: Lactic Sepsis W/Reflex 1.1 mmol/L (0.5-2.2)
[2022-09-03 21:25] LABS: Alanine Aminotransferase 7 U/L (0-41); Albumin Level 4.1 g/dL (3.5-5.2); Alkaline Phosphatase 62 U/L (40-130); Anion Gap 14.7 (5-19); Aspartate Amino Transferase 17 U/L (0-40); Blood Urea Nitrogen 12 mg/dL (8-23); Calcium 8.4 mg/dL (8.5-10.5); Carbon Dioxide 23 mmol/L (22-29); Chloride 104 mmol/L (98-107); Globulin 2.5 g/dL (1.3-4.6); Glomerular Filtration Rate 165.9 mL/min (90-130); Glucose 103 mg/dL (65-115); Osmolality Calculated 286 mOsm/kg (285-295); Potassium 3.7 mmol/L (3.5-5.1); Sodium 138 mmol/L (136-145); Total Bilirubin 2.7 mg/dL (0.15-1.2); Total Protein 6.6 g/dL (6.6-8.7)
[2022-09-03 21:43] LABS: Lipase 15 U/L (13-60)
[2022-09-03 21:46] VITALS: BP 91/60; PULSE 65; RESP 17; O2SAT 90
[2022-09-03 23:18] VITALS: BP 111/67; PULSE 62; RESP 14; O2SAT 93
[2022-09-03] MEDS: HYDROcodone-acetaminophen 5-325 mg Tablet 2 TAB PO (23:18)
== END 2022-09-03 23:25 | disposition home or self-care (01) ==
PROVIDERS: Emergency Medicine; Emergency Provider Emergency Medicine; PCP Nurse Practitioner Family
DX: R10.9 Unspecified abdominal pain (principal); D72.829 Elevated white blood cell count, unspecified; R17 Unspecified jaundice; R93.3 Abnormal findings on diagnostic imaging of other parts of digestive tract; Z12.11 Encounter for screening for malignant neoplasm of colon
CPT/HCPCS: 74176; 80053; 83605; 83690; 85025; 85610; 96374; 96375; 99284; J2405; J3010

== ENCOUNTER → 2022-09-08 10:36 | Outpatient (BNVA) | payer MEDICARE, MEDICAID, SELFPAY | PROVIDERS: PCP Nurse Practitioner Family; Visit Provider Nurse Practitioner Family | DX: R10.9 Unspecified abdominal pain (principal); D72.829 Elevated white blood cell count, unspecified | CPT/HCPCS: 80053; 82150; 83690 ==

== ENCOUNTER → 2022-09-23 17:27 | Outpatient (BNVA) | payer MEDICARE, MEDICAID, SELFPAY | PROVIDERS: PCP Nurse Practitioner Family; Visit Provider Surgery | DX: Z09 Encounter for follow-up examination after completed treatment for conditions other than malignant neoplasm (principal) | CPT/HCPCS: 99212 ==

== ENCOUNTER → 2022-10-08 13:47 | Outpatient (BNVA) | payer MEDICARE, MEDICAID, SELFPAY | PROVIDERS: PCP Nurse Practitioner Family; Visit Provider Internal Medicine | DX: I25.10 Atherosclerotic heart disease of native coronary artery without angina pectoris (principal); J44.9 Chronic obstructive pulmonary disease, unspecified; E78.2 Mixed hyperlipidemia; R06.09 Other forms of dyspnea; F17.210 Nicotine dependence, cigarettes, uncomplicated | CPT/HCPCS: 99214 ==

== ENCOUNTER → 2022-10-27 10:47 | Outpatient (BNVA) | payer MEDICARE, MEDICAID, SELFPAY | PROVIDERS: PCP Nurse Practitioner Family; Visit Provider Nurse Practitioner Family | DX: R10.11 Right upper quadrant pain (principal); K63.5 Polyp of colon; R53.1 Weakness; R53.83 Other fatigue; Z12.5 Encounter for screening for malignant neoplasm of prostate; J32.0 Chronic maxillary sinusitis; G25.81 Restless legs syndrome; W57.XXXA Bitten or stung by nonvenomous insect and other nonvenomous arthropods, initial encounter; E78.2 Mixed hyperlipidemia; Z79.899 Other long term (current) drug therapy | CPT/HCPCS: 80053; 80061; 82306; 82607; 82746; 83550; 84443; 85651; 86003; 86008; 86140; 86618; 86666; 86757; G0103 ==

== ENCOUNTER → 2022-10-30 09:32 | Outpatient (BNVA) | payer MEDICARE, SELFPAY | PROVIDERS: PCP Nurse Practitioner Family; Visit Provider Internal Medicine Pulmonary Disease | DX: J44.9 Chronic obstructive pulmonary disease, unspecified (principal); J82.83 Eosinophilic asthma; F17.210 Nicotine dependence, cigarettes, uncomplicated; Z79.51 Long term (current) use of inhaled steroids | CPT/HCPCS: 99214 ==

== ENCOUNTER → 2023-01-26 13:03 | Outpatient (BNVA) | payer MEDICARE, SELFPAY | PROVIDERS: PCP Nurse Practitioner Family; Visit Provider Nurse Practitioner Family | DX: E78.2 Mixed hyperlipidemia (principal) | CPT/HCPCS: 80053; 80061 ==

== ENCOUNTER → 2023-03-03 13:25 | Outpatient (BNVA) | payer MEDICARE, SELFPAY | PROVIDERS: PCP Nurse Practitioner Family; Referring Provider Nurse Practitioner Family; Visit Provider Dermatology | DX: D48.5 Neoplasm of uncertain behavior of skin (principal); D18.01 Hemangioma of skin and subcutaneous tissue; L82.1 Other seborrheic keratosis | CPT/HCPCS: 11102; 99203 ==

== ENCOUNTER 2023-03-06 06:41 | Outpatient (CLI) | payer MEDICARE, SELFPAY ==
--- NOTE | 2023-03-06 07:00 | CT_ITS ---
WS: [id number] LDCT LUNG CANCER SCREENING TECHNIQUE: Noncontrast CT of the chest with coronal and sagittal reformatted images. CLINICAL INFORMATION: Cancer Screen COMPARISON: None. DLP: 48.51 mGy.cm DIvol: Mean CTDIvol: 0.80 (mGy) All CT scans at [facility] use at least one of these dose optimization techniques: automat ed exposure control; mA and/or kV adjustment per patient size (includes targeted exams where dose is matched to clinical indication); or iterative reconstruction. FINDINGS: Mild chronic emphysematous changes. Fibrosis in the lung apices. Adrenal glands are normal. Stable subpleural nodularity RIGHT upper lobe. Partially calcified nodule LEFT upper lobe measuring 4 mm is unchanged. A few tiny calcified granulomas. Normal caliber thoracic aorta. Aortic calcification. Coronary calcification. No mediastinal or hilar lymphadenopathy. No axillary lymphadenopathy. Adrenals are normal. IMPRESSION: CT/CT lung screening [id number] LUNG-RADS: 2-Benign Appearance or Behavior FOLLOW UP: 12 Month: Continue annual screening with LDCT
== END 2023-03-06 06:42 | disposition home or self-care (01) ==
LOC: RAD 06:41
PROVIDERS: PCP Nurse Practitioner Family; Visit Provider Internal Medicine Pulmonary Disease
DX: Z12.2 Encounter for screening for malignant neoplasm of respiratory organs (principal); F17.210 Nicotine dependence, cigarettes, uncomplicated
CPT/HCPCS: 71271

== ENCOUNTER → 2023-04-03 07:47 | Outpatient (BNVA) | payer MEDICARE, SELFPAY | PROVIDERS: PCP Nurse Practitioner Family; Visit Provider Dermatology | DX: C44.311 Basal cell carcinoma of skin of nose (principal) | CPT/HCPCS: 14060; 17311 ==

== ENCOUNTER 2023-04-29 07:10 | Day surgery (SDC) | payer MEDICARE, SELFPAY ==
[2023-04-29 07:34] VITALS: BP 134/80; PULSE 71; RESP 18; TEMP 36.6; O2SAT 97
[2023-04-29] MEDS: sodium chloride 0.9% 1,000 ML 30 ML IV (07:38)
--- NOTE | 2023-04-29 07:42 | ANES.PREANE2 ---
Pre-Anesthetic Assessment Height/Weight: Height 1.78 m Weight 54.431 kg Temp Pulse Resp BP Pulse Ox O2 Del Method 97.9 F 71 18 134/80 97 Room Air 04/29/23 07:34 04/29/23 07:34 04/29/23 07:34 04/29/23 07:34 04/29/23 07:34 04/29/23 07:34 Preop Diagnosis: Screening Operation Date: 04/29/23 08:30 Proposed Procedures p [id number] colon G0121 screen colon A risk Z12.11(Not Applicable) - Dirk Walden DO Familial anesthetic complications: None Was Beta Danielle taken within 24 hours: N/A Was Clonidine taken within 24 hours: N/A Last intake: Intake Last Liquid Date 04/28/23 Last Liquid Time 22:00 Last Solid Date 04/27/23 Last Solid Time 20:00 Social No alcohol and No tobacco (Quit 2 months ago) Exam alert, oriented x 3 and regular rate & rhythm Diminished bilateral breath sounds Airway Submandibular: within normal limits Cervical ROM: within normal limits Mallampati: Class II Comments: Comments: numerous missing teeth, one fronth tooth History/ROS No significant history except as noted and No significant complaints Pulmonary Chronic Obstructive Pulmonary Disease, Cough and Exertional Dyspnea CV/HEM Arrythmia, Coronary Artery Disease and Myocardial Infarction (2017 no intervention) None reported Hepatic None reported GI None reported History of polyps Metabolic Hyperlipidemia Musc/skel Osteoarthritis/DJD (Back surgery x2 with instrumentation) Neuropsych Neuropathy Anesthetic Plan ASA status: 3 Anesthesia: Anesthesia Evaluation, General and MAC Risk of > 500 ml blood loss (7ml/kg in children): No Medications/Allergies Home Medications Medication Instructions Recorded Confirmed Last Taken Type budesonide 160 mcg-glycopyr 9 2 inh inhalation BID 30 days #10.7 09/02/22 04/29/23 04/27/23 Rx mcg-formot 4.8 mcg/actuation HFA grams inhaler (Breztri Aerosphere) albuterol sulfate 90 mcg/actuation 2 puff inhalation QID PRN 01/26/23 04/27/23 04/28/23 Rx aerosol inhaler (Ventolin HFA) shortness of breath or wheezing #8.5 grams ropinirole 1 mg tablet 1 mg PO .QHS 90 days #90 tabs 01/26/23 04/27/23 04/28/23 Rx simvastatin 20 mg tablet 20 mg PO DAILY 90 days #90 tabs 01/26/23 04/27/23 04/28/23 Rx tizanidine 4 mg tablet 4 mg PO Q8H PRN muscle spasticity 01/26/23 04/27/23 04/24/23 Rx #90 tabs RSVPreF3 antigen-AS01E 0.5 ml IM ONCE #1 ea 04/24/23 04/27/23 04/22/23 Rx adjuvant(PF) 120 mcg/0.5 mL IM suspension, kit (Arexvy (PF)) Allergies Allergy/AdvReac Type Severity Reaction Status Date / Time Alpha-Gal Allergy ADR-Abdominal Verified 04/27/23 10:38 (Xjruljewy-Ysjbk-9,3-Gala Pain iodine Allergy Unknown Verified 10/30/22 09:39 Current Medications Generic Name Dose Route Start Last Admin Trade Name Freq PRN Reason Stop Dose Admin Sodium Chloride 1,000 mls @ 30 mls/hr 04/29/23 07:15 04/29/23 07:38 Sodium Chloride 0.9% IV 04/30/23 07:14 30 mls/hr .Q24H JOCELYNN Administration PFSH Anesthesia Medical History CAD (coronary artery disease) COPD (chronic obstructive pulmonary disease) No pertinent family history Family History Other Aneurysm Cancer Stroke Social History Smoking and tobacco/nicotine status: current every day tobacco/nicotine user cigarettes Packs smoked per day: 1 Years cigarettes smoked: 50 [ Other cigarette details: started age 11 ; less than 1ppd currently ] Data Anesthesia Cardiac Studies: Echocardiogram 03/21/22 Sestamibi Stress Test (Cardiology) 05/15/22
--- NOTE | 2023-04-29 09:06 | PM.HP ---
Providers/Chief Complaint Primary Care Provider: Rebecca Beavers NP Chief Complaint: Z12.11 History of Present Illness Robert Liang is a 67 year old male Review of Systems General: Reports: 10 or more systems reviewed and unremarkable except in HPI and below Medications/Allergies Home Medications Medication Instructions Recorded Confirmed Last Taken Type budesonide 160 mcg-glycopyr 9 2 inh inhalation BID 30 days #10.7 09/02/22 04/29/23 04/27/23 Rx mcg-formot 4.8 mcg/actuation HFA grams inhaler (Breztri Aerosphere) albuterol sulfate 90 mcg/actuation 2 puff inhalation QID PRN 01/26/23 04/27/23 04/28/23 Rx aerosol inhaler (Ventolin HFA) shortness of breath or wheezing #8.5 grams ropinirole 1 mg tablet 1 mg PO .QHS 90 days #90 tabs 01/26/23 04/27/23 04/28/23 Rx simvastatin 20 mg tablet 20 mg PO DAILY 90 days #90 tabs 01/26/23 04/27/23 04/28/23 Rx tizanidine 4 mg tablet 4 mg PO Q8H PRN muscle spasticity 01/26/23 04/27/23 04/24/23 Rx #90 tabs RSVPreF3 antigen-AS01E 0.5 ml IM ONCE #1 ea 04/24/23 04/27/23 04/22/23 Rx adjuvant(PF) 120 mcg/0.5 mL IM suspension, kit (Arexvy (PF)) Allergies Allergy/AdvReac Type Severity Reaction Status Date / Time Alpha-Gal Allergy ADR-Abdominal Verified 04/27/23 10:38 (Remhcqvgz-Kumit-6,3-Gala Pain iodine Allergy Unknown Verified 10/30/22 09:39 PFSH Acute PFSH: Medical History CAD (coronary artery disease) COPD (chronic obstructive pulmonary disease) No pertinent family history Family History Other Aneurysm Cancer Stroke Social History Smoking and tobacco/nicotine status: current every day tobacco/nicotine user cigarettes Packs smoked per day: 1 Years cigarettes smoked: 50 [ Other cigarette details: started age 11 ; less than 1ppd currently ] Vitals/I&O/Wt Last Vital Signs Temp 97.9 F 04/29/23 07:34 Pulse 71 04/29/23 07:34 Resp 18 04/29/23 07:34 BP 134/80 04/29/23 07:34 Pulse Ox 97 04/29/23 07:34 O2 Del Method Room Air 04/29/23 07:34 Weight last 48 hrs Weight 120 lb A&P Assessment and plan (1) Positive colorectal cancer screening using Cologuard test: (2) History of colon polyps: Plan Colonoscopy The risks and benefits of the procedure, including bleeding, infection, intestinal perforation requiring surgery, missed lesion were explained to the patient. The patient is understanding of the risks and wishes to proceed. Attestations Medical Necessity Statement*: Home Coding Level of Care Code Acute Code for Chg Fwd Diagnoses Positive colorectal cancer screening using Cologuard test R19.5 History of colon polyps Z86.010
[2023-04-29 09:31] VITALS: BP 103/66; PULSE 68; RESP 12; TEMP 36.1; O2SAT 96
[2023-04-29 09:45] VITALS: BP 102/70; PULSE 61; RESP 14; O2SAT 92
[2023-04-29 09:58] VITALS: BP 106/74; PULSE 59; RESP 16; O2SAT 97
== END 2023-04-29 10:30 | disposition home or self-care (01) ==
PROVIDERS: PCP Nurse Practitioner Family; Visit Provider Surgery
PROC: 0DJD8ZZ Inspection of Lower Intestinal Tract, Via Natural or Artificial Opening Endoscopic (ICD-10-PCS; CPT 45378; principal; 2023-04-29 08:30)
DX: Z12.11 Encounter for screening for malignant neoplasm of colon (principal); D12.5 Benign neoplasm of sigmoid colon; I25.10 Atherosclerotic heart disease of native coronary artery without angina pectoris; J44.9 Chronic obstructive pulmonary disease, unspecified; F17.210 Nicotine dependence, cigarettes, uncomplicated; Z86.010 Personal history of colon polyps; I25.2 Old myocardial infarction
CPT/HCPCS: 45385; 88305; J7030

== ENCOUNTER → 2023-06-16 12:15 | Outpatient (BNVA) | payer MEDICARE, SELFPAY | PROVIDERS: PCP Nurse Practitioner Family; Visit Provider Internal Medicine Pulmonary Disease | DX: J43.2 Centrilobular emphysema (principal); J82.83 Eosinophilic asthma; R06.09 Other forms of dyspnea; F17.210 Nicotine dependence, cigarettes, uncomplicated | CPT/HCPCS: 99214 ==

== ENCOUNTER → 2023-06-19 10:12 | Outpatient (BNVA) | payer MEDICARE, SELFPAY | PROVIDERS: PCP Nurse Practitioner Family; Visit Provider Nurse Practitioner Family | DX: J43.2 Centrilobular emphysema (principal); E78.2 Mixed hyperlipidemia; R00.2 Palpitations | CPT/HCPCS: 80053; 80061; 84443; 85025 ==

== ENCOUNTER → 2023-10-08 12:48 | Outpatient (BNVA) | payer MEDICARE, MEDICAID, SELFPAY | PROVIDERS: PCP Nurse Practitioner Family; Visit Provider Internal Medicine Cardiovascular Disease | DX: R06.02 Shortness of breath (principal); R06.09 Other forms of dyspnea | CPT/HCPCS: 99212 ==

== ENCOUNTER → 2023-12-03 17:14 | Outpatient (BNVA) | payer MEDICARE, MEDICAID, SELFPAY | PROVIDERS: PCP Nurse Practitioner Family; Visit Provider Nurse Practitioner Family | DX: N52.9 Male erectile dysfunction, unspecified (principal); R53.83 Other fatigue; R53.1 Weakness; R41.3 Other amnesia; E78.2 Mixed hyperlipidemia; M62.838 Other muscle spasm | CPT/HCPCS: 80053; 80061; 82306; 82607; 82746; 83735; 84402; 84403; 84443 ==

== ENCOUNTER → 2023-12-04 11:54 | Outpatient (BNVA) | payer MEDICARE, MEDICAID, SELFPAY | PROVIDERS: PCP Nurse Practitioner Family; Visit Provider Nurse Practitioner Family | DX: Z12.5 Encounter for screening for malignant neoplasm of prostate (principal); R53.1 Weakness; R41.3 Other amnesia | CPT/HCPCS: 85025; G0103 ==

== ENCOUNTER → 2024-03-03 08:09 | Outpatient (BNVA) | payer MEDICARE, SELFPAY | PROVIDERS: PCP Nurse Practitioner Family; Visit Provider Nurse Practitioner Family | DX: D48.5 Neoplasm of uncertain behavior of skin (principal); D18.01 Hemangioma of skin and subcutaneous tissue; L82.1 Other seborrheic keratosis; L57.8 Other skin changes due to chronic exposure to nonionizing radiation; Z85.828 Personal history of other malignant neoplasm of skin | CPT/HCPCS: 11102; 99213 ==

== ENCOUNTER → 2024-03-07 08:59 | Outpatient (BNVA) | payer MEDICARE, SELFPAY | PROVIDERS: PCP Nurse Practitioner Family; Visit Provider Nurse Practitioner Family | DX: E78.2 Mixed hyperlipidemia (principal); J43.2 Centrilobular emphysema; I25.10 Atherosclerotic heart disease of native coronary artery without angina pectoris; I25.2 Old myocardial infarction; G25.81 Restless legs syndrome; F41.8 Other specified anxiety disorders; N40.1 Benign prostatic hyperplasia with lower urinary tract symptoms; R35.1 Nocturia; E55.9 Vitamin D deficiency, unspecified; E16.2 Hypoglycemia, unspecified; H65.192 Other acute nonsuppurative otitis media, left ear | CPT/HCPCS: 80053; 80061; 85025 ==

== ENCOUNTER → 2024-06-15 15:56 | Outpatient (BNVA) | payer MEDICARE, SELFPAY | PROVIDERS: Family Provider Nurse Practitioner Family; PCP Nurse Practitioner Family; Visit Provider Nurse Practitioner Family | DX: E78.2 Mixed hyperlipidemia (principal); J43.2 Centrilobular emphysema; M62.830 Muscle spasm of back; F41.8 Other specified anxiety disorders; G25.81 Restless legs syndrome; J44.9 Chronic obstructive pulmonary disease, unspecified; N40.1 Benign prostatic hyperplasia with lower urinary tract symptoms; R35.1 Nocturia; I25.10 Atherosclerotic heart disease of native coronary artery without angina pectoris; I25.2 Old myocardial infarction; E55.9 Vitamin D deficiency, unspecified | CPT/HCPCS: 80053; 80061; 84443; 85025 ==

== ENCOUNTER → 2024-07-04 11:06 | Outpatient (BNVA) | payer MEDICARE, SELFPAY | PROVIDERS: Family Provider Nurse Practitioner Family; PCP Nurse Practitioner Family; Visit Provider Nurse Practitioner Family | DX: L72.0 Epidermal cyst (principal); L82.1 Other seborrheic keratosis; Z08 Encounter for follow-up examination after completed treatment for malignant neoplasm; Z85.828 Personal history of other malignant neoplasm of skin; L91.8 Other hypertrophic disorders of the skin; L29.89 Other pruritus; D48.5 Neoplasm of uncertain behavior of skin; L57.0 Actinic keratosis | CPT/HCPCS: 11102; 17000; 17110; 99213 ==

== ENCOUNTER → 2024-09-13 13:09 | Outpatient (BNVA) | payer MEDICARE, SELFPAY | PROVIDERS: Family Provider Nurse Practitioner Family; PCP Nurse Practitioner Family; Visit Provider Nurse Practitioner Family | DX: E78.2 Mixed hyperlipidemia (principal) | CPT/HCPCS: 80053; 80061; 84443; 85025 ==

== ENCOUNTER 2024-09-21 13:41 | Outpatient (CLI) | payer MEDICARE, SELFPAY ==
--- NOTE | 2024-09-21 14:45 | CT_ITS ---
WS: [id number] CT ABDOMEN PELVIS TECHNIQUE: Noncontrast CT of the abdomen and pelvis with coronal and sagittal reformatted images. CLINICAL INFORMATION: R10.9 - Unspecified abdominal pain COMPARISON: CT 2022 DLP: 237.[address] scans at [facility] use at least one of these dose optimization techniques: automated exposure control; mA and/or kV adjustment per patient size (includes targeted exams where dose is matched to clinical indication); or iterative reconstruction. FINDINGS: Sigmoid diverticulosis. Mild thickening with slight induration involving the mid and distal sigmoid colon deep in the pelvis. Tortuous sigmoid colon. Findings suspicious for acute diverticulitis. Recommend correlation for infectious symptoms. Contrast not administered. Mild hepatomegaly. Normal noncontrast spleen. Tiny esophageal hiatal hernia. Slight subsegmental atelectasis in the lung bases. Calcified granuloma LEFT lower lobe. Adrenal glands appear normal. No hydronephrosis in either kidney. Tiny nonobstructing RIGHT calyceal tip calculus. Small LEFT renal cyst. Small splenule. Aortic calcification. Urine distended bladder. Mild prostate enlargement with calcification measuring 4.1 cm. Recommend correlation PSA. Pedicle screw fixation L4-5 with interbody fusion. Hardware degrades some images in the pelvis. CT/CT abdomen pelvis wo con [id number] IMPRESSION: 1. Tortuous sigmoid colon with suspected acute diverticulitis with mild sigmoi d thickening and surrounding induration. Recommend correlation with infectious symptoms and follow-up CT abdomen pelvis with IV contrast after treatment. 2. Recommend follow-up to resolution. 3. Urine distended bladder may be due to bladder outlet obstruction. Mild pros varela enlargement measuring 4.1 cm. Recommend correlation PSA. 4. No other acute findings.
== END 2024-09-21 13:42 | disposition home or self-care (01) ==
PROVIDERS: Family Provider Nurse Practitioner Family; PCP Nurse Practitioner Family; Visit Provider Nurse Practitioner Family
DX: R10.9 Unspecified abdominal pain (principal); R10.819 Abdominal tenderness, unspecified site; R19.5 Other fecal abnormalities; R93.89 Abnormal findings on diagnostic imaging of other specified body structures; N40.0 Benign prostatic hyperplasia without lower urinary tract symptoms; K57.30 Diverticulosis of large intestine without perforation or abscess without bleeding; R16.0 Hepatomegaly, not elsewhere classified; J84.10 Pulmonary fibrosis, unspecified; N28.1 Cyst of kidney, acquired; I70.0 Atherosclerosis of aorta; Z98.1 Arthrodesis status
CPT/HCPCS: 74176; 80053; 85025

== ENCOUNTER → 2024-09-26 11:45 | Outpatient (BNVA) | payer MEDICARE, SELFPAY | PROVIDERS: Family Provider Nurse Practitioner Family; PCP Nurse Practitioner Family; Visit Provider Nurse Practitioner Family | DX: R35.1 Nocturia (principal); N40.0 Benign prostatic hyperplasia without lower urinary tract symptoms; K57.92 Diverticulitis of intestine, part unspecified, without perforation or abscess without bleeding; K44.9 Diaphragmatic hernia without obstruction or gangrene; N28.1 Cyst of kidney, acquired | CPT/HCPCS: 84153 ==

== ENCOUNTER → 2024-10-06 14:04 | Outpatient (BNVA) | payer MEDICARE, SELFPAY | PROVIDERS: Family Provider Nurse Practitioner Family; PCP Nurse Practitioner Family; Visit Provider Nurse Practitioner Family | DX: D23.22 Other benign neoplasm of skin of left ear and external auricular canal (principal); L98.8 Other specified disorders of the skin and subcutaneous tissue; L82.1 Other seborrheic keratosis; Z08 Encounter for follow-up examination after completed treatment for malignant neoplasm; Z85.828 Personal history of other malignant neoplasm of skin | CPT/HCPCS: 99213 ==

== ENCOUNTER 2024-10-13 10:41 | Outpatient (CLI) | payer MEDICARE, SELFPAY ==
--- NOTE | 2024-10-13 11:00 | CT_ITS ---
WS: [id number] CT ABDOMEN AND PELVIS NONCONTRAST HISTORY: N40.0 - Benign prostatic hyperplasia without lower urinar... TECHNIQUE: Imaging performed through the abdomen and pelvis. Coronal and sagittal reformats are submitted. All CT scans at [facility] use at least one of these dose optimization techniques: automated exposure control; mA and/or kV adjustment per patient size (includes targeted exams where dose is matched to clinical indication); or iterative reconstruction. DLP: 234.38 mGy.cm COMPARISON: 09/21/2024 Lower thorax: Lung bases are hyperexpanded. Benign granuloma LEFT lower lobe. Liver: Mild hepatomegaly. No intrahepatic duct dilatation. Gallbladder: Normal gallbladder. No pericholecystic fluid or cholelithiasis. No gallbladder wall thickening. Pancreas: Normal size and attenuation. Normal pancreatic duct. No pancreatitis or mass. Spleen: Normal. Adrenal glands: Normal. No mass. Right kidney: Normal size kidney. Nonobstructing 2 mm calcification lower pole. No perinephric stranding. Left kidney: Normal size kidney with no mass or hydronephrosis. Aorta: Mild atherosclerosis abdominal aorta with no aneurysm. No free fluid, intraperitoneal air or significant lymphadenopathy. GI tract: No obstruction. Mild sigmoid diverticular disease. No residual wall thickening in the sigmoid colon or inflammation. No abscess. Abdominal wall: Negative. No hernia. Pelvis: No free fluid or adenopathy. Negative urinary bladder. Prostate gland is enlarged with mild heterogeneity. Osseous structures: Posterior lumbar fusion at L4-5. Interbody disc spacer at L4-5. Schmorl's node defects L2. Sclerotic bone lesion LEFT greater trochanter. CT/CT abdomen pelvis wo con [id number] IMPRESSION: 1. Resolved sigmoid diverticulitis since 09/21/2024. No residual wall thickening . No abscess. 2. No renal obstruction or hydronephrosis. 3. No ascites or adenopathy. 4. Prostate hypertrophy. 5. Long-term stability sclerotic lesion LEFT greater trochanter.
== END 2024-10-13 10:42 | disposition home or self-care (01) ==
PROVIDERS: Family Provider Nurse Practitioner Family; PCP Nurse Practitioner Family; Visit Provider Nurse Practitioner Family
DX: N40.0 Benign prostatic hyperplasia without lower urinary tract symptoms (principal); K44.9 Diaphragmatic hernia without obstruction or gangrene; K57.30 Diverticulosis of large intestine without perforation or abscess without bleeding; N28.1 Cyst of kidney, acquired; M85.852 Other specified disorders of bone density and structure, left thigh; R91.8 Other nonspecific abnormal finding of lung field; J84.10 Pulmonary fibrosis, unspecified; R16.0 Hepatomegaly, not elsewhere classified; N28.89 Other specified disorders of kidney and ureter; I70.0 Atherosclerosis of aorta; Z98.1 Arthrodesis status; M51.46 Schmorl's nodes, lumbar region
CPT/HCPCS: 74176

== ENCOUNTER → 2024-11-22 13:21 | Outpatient (BNVA) | payer MEDICARE, SELFPAY | PROVIDERS: Family Provider Nurse Practitioner Family; PCP Nurse Practitioner Family; Visit Provider Internal Medicine | DX: I25.10 Atherosclerotic heart disease of native coronary artery without angina pectoris (principal); J44.9 Chronic obstructive pulmonary disease, unspecified; E78.2 Mixed hyperlipidemia; Z87.891 Personal history of nicotine dependence | CPT/HCPCS: 99213 ==

== ENCOUNTER 2024-12-19 17:38 | Emergency (ER) | payer MEDICARE, SELFPAY ==
--- NOTE | 2024-12-19 17:43 | XRR_ITS ---
PROCEDURE INFORMATION: Exam: XR Left Hand Exam date and time: 12/19/2024 5:52 PM Age: 69 years old Clinical indication: Injury or trauma; Other: Laceration; Left; Index finger TECHNIQUE: Imaging protocol: Radiologic exam of the left hand. Views: 3 or more views. COMPARISON: No relevant prior studies available. FINDINGS: Bones/joints: Comminuted fracture of 2nd distal phalanx. Associated laceration. Soft tissues: Normal. XR/XR hand LT min 3V* [id number] IMPRESSION: Comminuted fracture of 2nd distal phalanx.
--- NOTE | 2024-12-19 17:44 | ED_ITS ---
HPI - Extremity Injury (Upper) General: Chief Complaint: Wound/Laceration Stated Complaint: left hand finger injury Time Seen by Provider: 12/19/24 17:39 History of Present Illness: 69-year-old male presents to the emergen cy room with jagged laceration of the tip of the left index finger from using a table saw. No other injuries. Patient's tetanus is up-to-date. He is not on any anticoagulants. Related Data Previous Rx's ?Medication ?Instructions ?Recorded albuterol sulfate 90 mcg/actuation 2 puff inhalation Q ID PRN 09/13/24 aerosol inhaler (Ventolin HFA) shortness of breath or wheezing #8.5 grams alfuzosin 10 mg tablet,extended 10 mg PO DAILY #90 tab s 09/13/24 release 24 hr budesonide 160 mcg-glycopyr 9 See Rx Instructions .Rou te 09/13/24 mcg-formot 4.8 mcg/actuation HFA .COMPLEX #11 grams inhaler (Breztri Aerosphere) cholecalciferol (vitamin D3) 1,250 50,000 unit PO .onc e a week #4 tabs 09/13/24 mcg (50,000 unit) tablet ezetimibe 10 mg tablet 10 mg PO DAILY #90 tabs 05/11/11 ropinirole 1 mg tablet See Rx Instructions .Route 0 09/13/24 .COMPLEX #90 tabs sertraline 50 mg tablet (Zoloft) 50 mg PO DAILY #90 ta bs 09/13/24 tizanidine 4 mg tablet See Rx Instructions .Route 0 09/13/24 .COMPLEX #90 tabs hydrocodone 5 mg-acetaminophen 325 1 tab PO Q6H PRN pa in #15 tabs 12/19/24 mg tablet levofloxacin 500 mg tablet 500 mg PO DAILY 7 days #7 t abs 12/19/24 mupirocin 2 % topical ointment 1 applic topical DAILY #15 grams 12/19/24 (Centany) Allergies Allergy/AdvReac Type Severity Reaction Status Date / Time Alpha-Gal Allergy ADR-Abdominal Verified 11/22/24 14:00 (Tvbaeczdl-Vksvi-7,3-Gala Pain iodine Allergy Unknown Verified 11/22/24 14:00 gelatin capsules Allergy Severe ADR-Abdominal Uncoded 11/22/24 14:00 Pain PFSH ED PFSH: Medical History Shortness of breath History of colon polyps No pertinent family history CAD (coronary artery disease) COPD (chronic obstructive pulmonary disease) Surgical History History of back surgery Family History Other Aneurysm Cancer Stroke Social History Smoking and tobacco/nicotine status: former use of tobacco/nicotine Physical Exam Const: GENERAL APPEARANCE: cooperative ORIENTATION/CONSCIOUSNESS: Yes awake, Yes oriented to person, Yes oriented to place and Yes oriented to time HENMT: COMMON NORMALS: normocephalic, atraumatic and hearing grossly normal bilaterally HEAD & SCALP: normocephalic and atraumatic Resp: COMMON NORMALS: normal respiratory effort, No retractions, No use of accessory muscles and clear to auscultation bilaterally AUSCULTATION: clear to auscultation bilaterally Cardio: COMMON NORMALS: regular rate, regular rhythm and No murmurs present (Cardio) RATE: regular rate RHYTHM: regular rhythm Extremity: OTHER: Jagged irregular flap-like laceration no active bleeding involves the very tip of the finger. No tendon or nail damage. Neuro: SENSORIUM/ORIENTATION: Yes oriented to person, Yes oriented to place and Yes oriented to time Skin: COMMON NORMALS: no rashes or lesions noted GENERAL SKIN EXAM: no rashes or lesions noted Procedures Laceration Laceration 1: Site: upper extremity Side (If applicable): left (Second finger) Size (cm): 2.5 Description: irregular Depth: simple, single layer Pre-repair: irrigated extensively Skin layer closed with: nylon Size (cm): 5-0 Number of sutures: 5 Technique: simple, interrupted Nerve Block Nerve Block 1: Time out performed: Yes Local Anesthetic: lidocaine 1% Amount of anesthesia used (mL): 3 Side: left Nerve Blocks: digital (Second finger) Procedure Successful: Yes Patient Tolerated Procedure: well Complications: none Course Vital Signs: Vital signs: Vital Signs Temperature 98.1 F 12/19/24 17:48 Pulse Rate 60 12/19/24 20:22 Respiratory Rate 16 12/19/24 17:48 Blood Pressure 134/74 12/19/24 20:22 Pulse Oximetry 95 12/19/24 20:22 Oxygen Delivery Me thod Room Air 12/19/24 17:48 MDM - Extremity Injury (Upper) Medical Decision Making Patient's tetanus up-to-date. Given a gram of Ancef here. Will discharge him home on Levaquin. Wound was aggressively under irrigated after digital nerve block. Wound edges loosely approximated. Will discharge patient home wound was bandaged apply topical antibiotic ointment to the wound also given hydrocodone for pain with him follow-up with Dr. Olivia for monitoring in the next few days. If he has signs of fever or drainage from the wound return to the emergency room. Medical Records I reviewed the patient's medical records. Lab Data Radiology Impressions Hand X-Ray 12/19/24 17:43 IMPRESSION: Comminuted fracture of 2nd distal phalanx. All radiology interpretation(s) finalized by discharge Discharge Plan Discharge Patient Disposition: Home Clinical Impression: Open fracture of tuft of distal phalanx of finger, Finger laceration Condition: Stable Prescriptions: New levofloxacin 500 mg tablet 500 mg PO DAILY 7 Days Qty: 7 0RF mupirocin [Centany] 2 % ointment 1 applic topical DAILY Qty: 15 0RF hydrocodone-acetaminophen 5-325 mg tablet 1 tab PO Q6H PRN (Reason: pain) Qty: 15 0RF No Action tizanidine 4 mg tablet See Rx Instructions .ROUTE .COMPLEX Qty: 90 1RF Dose Instruction: TAKE 1 TABLET BY MOUTH EVERY 8 HOURS NEEDED FOR MUSCLE SPASM Rx Instructions: TAKE 1 TABLET BY MOUTH EVERY 8 HOURS NEEDED FOR MUSCLE SPASM sertraline [Zoloft] 50 mg tablet 50 mg PO DAILY Qty: 90 1RF ropinirole 1 mg tablet See Rx Instructions .ROUTE .COMPLEX Qty: 90 1RF Dose Instruction: TAKE 1 TABLET BY MOUTH EVERY DAY AT BEDTIME Rx Instructions: TAKE 1 TABLET BY MOUTH EVERY DAY AT BEDTIME ezetimibe 10 mg tablet 10 mg PO DAILY Qty: 90 1RF cholecalciferol (vitamin D3) 1,250 mcg (50,000 unit) tablet 50,000 unit PO .once a week Qty: 4 2RF Breztri Aerosphere 160-9-4.8 mcg/actuation HFA aerosol inhaler See Rx Instructions .ROUTE .COMPLEX Qty: 11 11RF Dose Instruction: INHALE 2 PUFFS TWICE DAILY FOR 30 DAYS Rx Instructions: INHALE 2 PUFFS TWICE DAILY FOR 30 DAYS alfuzosin 10 mg tablet extended release 24 hr 10 mg PO DAILY Qty: 90 1RF Rx Instructions: administer after the same meal each day albuterol sulfate [Ventolin HFA] 90 mcg/actuation HFA aerosol inhaler 2 puff inhalation QID PRN (Reason: shortness of breath or wheezing) Qty: 8.5 6RF Discharge Orders: Discharge ED (Routine); Ordered 12/19/24 Ordered By: Sudarshan Parra Referrals: Lilian Real FNP-C [Primary Care Provider, Family Practice] Discharge Diet: Usual diet Discharge Activity: Limit activity as instructed Patient Instructions: Opioid Safety, Pain Management, Patient Portal & Juan Instructions Activity Restrictions/Additional Instructions: Thank you for choosing [facility] for your healthcare needs today. It is very important that you follow up as instructed or that you return to the Emergency Department should you have concerns or if your condition changes or worsens in any way. Emergency department visits are focused on emergent conditions, in some cases you may require further evaluation on an outpatient basis. You were seen in the emergency room after a tablesaw accident. You have a laceration to the tip of your left index finger that involves the distal tuft of the bone in the fingertip. Laceration was closed loosely. Recommend you elevate the hand is much as possible. You reported your tetanus was up-to-date. You are given a single dose of IM antibiotics here begin the oral antibiotics tomorrow. You are given pain medications as well. Will have you follow-up with Dr. Olivia in the office in the next 1 to 2 days. Return if you have uncontrolled pain or signs of infection. (Please note that included in your discharge packet is information concerning opioid safety and pain management. This information is given to all patients were discharged from the ER regardless of their discharge diagnosis or the medicines they usually take or are prescribed.) Print Language: Citizen Of [place] Coding Level of Care Code ED Physical Therapy Technician for Gifty Moise
[2024-12-19 17:48] VITALS: BP 132/76; PULSE 64; RESP 16; TEMP 36.7; O2SAT 95; BMI 20.7
[2024-12-19] MEDS: ceFAZolin 1,000 MG in water for injection-sterile 2.5 ML 999 MG IM (18:18)
--- NOTE | 2024-12-19 19:06 | DCPLANNER ---
messaged ortho for er f/u
[2024-12-19] MEDS: mupirocin oint 22 gm 1 APPLIC TOPICAL (19:45)
[2024-12-19] MEDS: HYDROcodone-acetaminophen 5-325 mg Tablet 2 TAB PO ×2 (19:57)
[2024-12-19 20:22] VITALS: BP 134/74; PULSE 60; O2SAT 95
== END 2024-12-19 19:57 | disposition home or self-care (01) ==
PROVIDERS: Emergency Provider Family Medicine; PCP Nurse Practitioner Family
DX: S62.631A Displaced fracture of distal phalanx of left index finger, initial encounter for closed fracture (principal); S61.211A Laceration without foreign body of left index finger without damage to nail, initial encounter; W27.0XXA Contact with workbench tool, initial encounter; Z87.891 Personal history of nicotine dependence; J44.9 Chronic obstructive pulmonary disease, unspecified; I25.10 Atherosclerotic heart disease of native coronary artery without angina pectoris
CPT/HCPCS: 12001; 73130; 96372; 99284; J0690; J9999

== ENCOUNTER → 2024-12-21 14:57 | Outpatient (BNVA) | payer MEDICARE, SELFPAY | PROVIDERS: PCP Nurse Practitioner Family; Visit Provider Physician Assistant | DX: S62.638B Displaced fracture of distal phalanx of other finger, initial encounter for open fracture (principal); X58.XXXA Exposure to other specified factors, initial encounter | CPT/HCPCS: 73130 ==

== ENCOUNTER 2024-12-21 15:23 | Outpatient (CLI) | payer MEDICARE, SELFPAY | END 2024-12-21 15:24 | disposition home or self-care (01) | LOC: SOT 15:25 | PROVIDERS: PCP Nurse Practitioner Family; Visit Provider Physician Assistant | DX: Z46.89 Encounter for fitting and adjustment of other specified devices (principal); S62.639A Displaced fracture of distal phalanx of unspecified finger, initial encounter for closed fracture; W31.2XXA Contact with powered woodworking and forming machines, initial encounter | CPT/HCPCS: 97760; 99203; L3935 ==

== ENCOUNTER 2024-12-23 06:48 | Outpatient (RCR) | payer MEDICARE, SELFPAY | END 2025-01-17 23:59 | disposition home or self-care (01) | LOC: SOT 06:48 | PROVIDERS: PCP Nurse Practitioner Family; Visit Provider Physician Assistant | DX: S61.211A Laceration without foreign body of left index finger without damage to nail, initial encounter (principal); S62.631A Displaced fracture of distal phalanx of left index finger, initial encounter for closed fracture; X58.XXXA Exposure to other specified factors, initial encounter | CPT/HCPCS: 97022; 97110; 97165 ==

== ENCOUNTER → 2024-12-27 14:09 | Outpatient (BNVA) | payer MEDICARE, SELFPAY | PROVIDERS: PCP Nurse Practitioner Family; Visit Provider Nurse Practitioner Family | DX: R50.9 Fever, unspecified (principal) | CPT/HCPCS: 80053; 81000; 85025; 87400; 87426 ==

== ENCOUNTER → 2024-12-28 13:17 | Outpatient (BNVA) | payer MEDICARE, SELFPAY | PROVIDERS: PCP Nurse Practitioner Family; Visit Provider Student in an Organized Health Care Education/Training Program | DX: S62.631B Displaced fracture of distal phalanx of left index finger, initial encounter for open fracture (principal); X58.XXXA Exposure to other specified factors, initial encounter; R50.9 Fever, unspecified; W57.XXXA Bitten or stung by nonvenomous insect and other nonvenomous arthropods, initial encounter; E78.2 Mixed hyperlipidemia | CPT/HCPCS: 73130; 86618; 86666; 86757; 99213 ==

== ENCOUNTER → 2025-01-12 15:53 | Outpatient (BNVA) | payer MEDICARE, SELFPAY | PROVIDERS: PCP Nurse Practitioner Family; Visit Provider Nurse Practitioner Family | DX: R09.89 Other specified symptoms and signs involving the circulatory and respiratory systems (principal); R53.82 Chronic fatigue, unspecified; R06.02 Shortness of breath; E78.2 Mixed hyperlipidemia | CPT/HCPCS: 71046; 80053; 82306; 82607; 83880; 85025 ==

== ENCOUNTER → 2025-02-01 13:25 | Outpatient (BNVA) | payer MEDICARE, SELFPAY | PROVIDERS: PCP Nurse Practitioner Family; Visit Provider Student in an Organized Health Care Education/Training Program | DX: S62.631B Displaced fracture of distal phalanx of left index finger, initial encounter for open fracture (principal); X58.XXXA Exposure to other specified factors, initial encounter | CPT/HCPCS: 73130; 99213 ==

== ENCOUNTER → 2025-02-02 07:52 | Outpatient (BNVA) | payer MEDICARE, SELFPAY | PROVIDERS: PCP Nurse Practitioner Family; Visit Provider Nurse Practitioner Family | DX: S60.022A Contusion of left index finger without damage to nail, initial encounter (principal); D23.22 Other benign neoplasm of skin of left ear and external auricular canal; L98.8 Other specified disorders of the skin and subcutaneous tissue; D18.01 Hemangioma of skin and subcutaneous tissue; L82.1 Other seborrheic keratosis; Z08 Encounter for follow-up examination after completed treatment for malignant neoplasm; Z85.828 Personal history of other malignant neoplasm of skin; L91.8 Other hypertrophic disorders of the skin; R20.8 Other disturbances of skin sensation; L53.8 Other specified erythematous conditions; D48.5 Neoplasm of uncertain behavior of skin; L29.89 Other pruritus; X58.XXXA Exposure to other specified factors, initial encounter; L57.0 Actinic keratosis | CPT/HCPCS: 11102; 17000; 17110; 99213 ==

== ENCOUNTER → 2025-04-03 14:59 | Outpatient (BNVA) | payer MEDICARE, SELFPAY | PROVIDERS: PCP Nurse Practitioner Family; Visit Provider Internal Medicine | DX: I25.10 Atherosclerotic heart disease of native coronary artery without angina pectoris (principal); R07.9 Chest pain, unspecified; J44.9 Chronic obstructive pulmonary disease, unspecified; E78.2 Mixed hyperlipidemia; R06.09 Other forms of dyspnea; R53.83 Other fatigue; Z87.891 Personal history of nicotine dependence | CPT/HCPCS: 99214 ==

== ENCOUNTER 2025-04-12 08:08 | Outpatient (CLI) | payer MEDICARE, SELFPAY ==
--- NOTE | 2025-04-12 | ECG_ITS ---
[email or web address] Test Date: 2025-04-12 Pat Name: Robert Liang Department: Room: Gender: Male Radiochemical Technician: : 1955 Requested By: Favian Singleton Order Number: [id number] Earl MD: KELLY WALKER Interpretive Statements Lung unchanged pre/post procedure; Intraprocedure shortess of breath; Symptoms resoled by discharge NOTE: Please note that this is the electrocardiogram portion of the Lexiscan/Sestamibi stress test. The perfusion scan will be documented separately. DATA: Baseline heart rate was 49 beats per minute. Baseline blood pressure was 134/81 millimeters of mercury. Target heart rate was 150. Maximum heart rate achieved was 79. which was 52% of the predicted target heart rate. Maximum blood pressure was 134/83 millimeters of mercury. The reason for ending the test was completion of the protocol. The patient did not experience any symptoms. ELECTROCARDIOGRAM: BASELINE: Sinus bradycardia. Normal axis. Poor R wave progression in the anterior leads, otherwise, no ST-T changes suggestive of ischemia noted. No arrhythmia noted. EXERCISE: After Lexiscan injection, no ST-T changes suggestive of ischemic noted. No arrhythmia noted. CONCLUSION: Please note due to baseline abnormality of the EKG specificity and sensitivity of the EKG portion of LexiScan MIBI stress test will be low 1. EKG not suggestive of ischemia 2. Lexiscan injection unremarkable. 3. Perfusion scan will be documented separately. Electronically Signed On 04-20-2025 17:03:13 SENIOR COMPLIANCE OFFICER by KELLY WALKER [email or web address]
[2025-04-12 08:52] VITALS: BMI 18.1
--- NOTE | 2025-04-12 08:56 | NMCV_ITS ---
NM anuradha perf SPECT r/s* [id number] Robert Liang Age: 69 Gender: M : 1955 Exam Date: 04/12/2025 08:59 Ordering Phys: Favian Singleton M.D ([email or web address]) Technologist: ELISSA Llanos Exam Location: [facility] Indications: CP STRESS TEST Please see separate stress test report in [facility] for full findings IMAGE PROTOCOL Rest/Stress 1 Lexiscan Day Radiopharmaceutical Dose (mCi) Administration Site Administered by Rest: Tc-99m 10.5 IV Shea Dye, TIMBER MANAGEMENT SPECIALIST Sestamibi Stress:Tc-99m 32.7 IV Shea Mackgle, TIMBER MANAGEMENT SPECIALIST Sestamibi Rest: 12-Apr-2025 60 Discovery 630 Stress: 12-Apr-2025 30 Discovery 630 0.4mg Lexiscan. Images obtained in supine and prone position. SPECT RESULTS Technical Quality: Good Raw Data Analysis: Normal Image Corrections: No attenuation or motion correction applied Summed Stress Score: 1 Summed Rest Score: 3 Summed Difference Score: 0 PERFUSION FINDINGS Medium sized area of fixed perfusion defect noted in basal to distal inferoseptal wall on both stress and rest images and absence of wall motion abnormality cannot rule out artifact. This study is not suggestive of ischemia. FUNCTIONAL RESULTS (calculated via Gated SPECT) Stress Image LV EF (%): 64 Stress EDV (mL):98 TID: 1.11 Stress ESV (mL):35 FUNCTIONAL FINDINGS: There is normal left ventricular systolic function. IMPRESSIONS Medium sized area of fixed perfusion defect noted in basal to distal inferolateral septal wall without ischemia, and absence of wall motion abnormality cannot rule out artifact. This study is negative for ischemia. Donya Lewis MD (Electronically Signed) Final Date: 12 April 2025 12:17 S
[2025-04-12 09:56] VITALS: BP 124/76; PULSE 68
== END 2025-04-12 08:09 | disposition home or self-care (01) ==
LOC: CDL 08:10
PROVIDERS: PCP Nurse Practitioner Family; Visit Provider Internal Medicine
DX: R07.9 Chest pain, unspecified (principal); R93.1 Abnormal findings on diagnostic imaging of heart and coronary circulation
CPT/HCPCS: 36415; 78452; 93017; 96374; A9500; J2785